=== PATIENT | male | born 1970 | race Caucasian/White ===

== ENCOUNTER → 2020-06-25 | Outpatient (CLI) | payer OTHER | LOC: EXRD 13:30 | DX: R79.89 Other specified abnormal findings of blood chemistry (principal); Z90.49 Acquired absence of other specified parts of digestive tract | CPT/HCPCS: 76870 ==

== ENCOUNTER → 2020-12-29 | Outpatient (CLI) | payer OTHER | LOC: CT 14:27 | DX: R10.32 Left lower quadrant pain (principal); N32.89 Other specified disorders of bladder | CPT/HCPCS: 36415; 82565; Q9967 ==